=== PATIENT | female | born 1945 ===

== ENCOUNTER 2020-11-22 11:15 | Inpatient (IN) | payer OTHER ==
[~2020-11-22] VITALS: Ht 160 cm; Wt 62.6 kg
[2020-11-22] MEDS ORDERED: DAFLONEX-XL 11300 MG PO (12:36)
[2020-11-22] MEDS ORDERED: COZAAR25 MG PO (12:36)
[2020-11-22] MEDS ORDERED: ZOLOFT25 MG PO (12:37)
[2020-11-25] MEDS ORDERED: PERCOCET 5-3251 EACH PO (15:23)
[2020-11-25] MEDS ORDERED: CLEOCIN HCL300 MG PO (15:23)
[2020-11-25] MEDS ORDERED: MEDROLPACK PO (15:23)
[2020-11-25] MEDS ORDERED: COLACE100 MG PO (15:23)
[2020-11-25] MEDS ORDERED: GABAPENTIN800 MG PO (15:23)
== END 2020-11-27 11:22 | disposition home or self-care (01) | DRG 455 ==
LOC: ADM 11:15 → O/R 11-25 07:14 → SURG 11-25 07:14 → EDSTATUS 11-25 11:15 → CIR.AMB 11-25 11:15 → SURH 11-25 11:15 → SURG 11-25 19:07
PROVIDERS: ADMIT Orthopaedic Surgery Orthopaedic Surgery of the Spine; ATTEND Orthopaedic Surgery Orthopaedic Surgery of the Spine
PROC: 0SG30AJ Fusion of Lumbosacral Joint with Interbody Fusion Device, Posterior Approach, Anterior Column, Open Approach (ICD-10-PCS; 2020-11-25)
PROC: 07DR3ZZ Extraction of Iliac Bone Marrow, Percutaneous Approach (ICD-10-PCS; 2020-11-25)
PROC: 0SG30J1 Fusion of Lumbosacral Joint with Synthetic Substitute, Posterior Approach, Posterior Column, Open Approach (ICD-10-PCS; principal; 2020-11-25 13:30)
DX: M43.17 Spondylolisthesis, lumbosacral region (principal); M48.07 Spinal stenosis, lumbosacral region; M54.17 Radiculopathy, lumbosacral region; M96.1 Postlaminectomy syndrome, not elsewhere classified

== ENCOUNTER 2020-12-14 11:41 | Emergency (ER) | payer OTHER ==
[~2020-12-14] VITALS: Ht 160 cm; Wt 63.0 kg
[~2020-12-14 11:41] MED LIST: CLEOCIN HCL300 MG PO; COLACE100 MG PO; COZAAR25 MG PO; DAFLONEX-XL 11300 MG PO; GABAPENTIN800 MG PO; MEDROLPACK PO; PERCOCET 5-3251 EACH PO; ZOLOFT25 MG PO
[2020-12-14] MEDS ORDERED: BAYER THERAPY325 MG PO (12:18)
[2020-12-14] MEDS ORDERED: MEDROLPACK PO (15:57)
[2020-12-14] MEDS ORDERED: LEVOFLOXACIN500 MG PO (15:57)
[2020-12-14] MEDS ORDERED: TUSSI PRES-B L480 ML PO (15:57)
== END 2020-12-14 16:03 | disposition home or self-care (01) ==
LOC: ER 11:41
DX: J06.9 Acute upper respiratory infection, unspecified (principal); M54.59 Other low back pain; Z03.818 Encounter for observation for suspected exposure to other biological agents ruled out; R53.81 Other malaise; R07.89 Other chest pain; R05.9 Cough, unspecified; R09.81 Nasal congestion